=== PATIENT | female | born 1950 ===

== ENCOUNTER → 2021-01-01 | Outpatient (CLI) | payer SELFPAY ==
[2021-01-01 19:16] LABS: U Amphetamine Screen Not Detected; U Barbituate Screen Not Detected; U Benzodiazapine Screen DETECTED; U Cocaine Screen Not Detected; U Methadone Screen Not Detected; U Methamphetamine Screen Not Detected; U Opiates Screen DETECTED; U Phencyclidine Screen Not Detected
[2021-01-01 19:17] LABS: U Buprenorphine Screen Not Detected; U Cannabinoids Screen Not Detected; U Oxycodone Screen Not Detected; U Propoxyphene Screen Not Detected
== END | disposition home or self-care (01) ==
LOC: LAB SHORT 17:58
PROVIDERS: Physician Assistant
DX: M15.9 Polyosteoarthritis, unspecified (principal)